=== PATIENT | female | born 2000 | race Caucasian/White ===

== ENCOUNTER 2024-09-11 19:14 | Outpatient (CLI) | payer OTHER ==
[2024-09-11 18:24] VITALS: BP 107/68
[2024-09-11] MEDS ORDERED: RINGERS SOLUTION,LACTATED 1,000 ML IV SCH (19:30)
[2024-09-11 19:56] LABS: PH,URINE 6.5 (5.0-8.0); URINE APPEARANCE Clear; URINE BILIRRUBIN Negative (NEGATIVE); URINE BLOOD Negative; URINE COLOR Yellow; URINE GLUCOSE Negative (NEGATIVE); URINE KETONE Negative (NEGATIVE); URINE LEUKOCYTE Negative; URINE NITRATE Negative; URINE PROTEIN Negative (NEGATIVE); URINE UROBILINOGEN 0.2 E.U./dl
[2024-09-11 19:57] LABS: HEMATOCRIT 43.4 % (36.0-45.00); HEMOGLOBIN 14.7 g/dL (12.0-15.00); MEAN CELL VOLUME 80.5 fL (80.00-100.00); MEAN CORPUSCULAR HEMOGLOBIN 27.3 pg (27.00-32.0); MEAN CORPUSCULAR HGB CONC 33.9 g/dl (32.0-36.0); PLATELET COUNT 232 K/uL (150-450); RED BLOOD COUNT 5.39 M/uL (4.00-6.00); RED CELL DISTRIBUTION WIDTH 14.5 % (11.5-14.5)
[2024-09-11 19:59] LABS: URINE BACTERIA 209.3 uL (0.0-1933); URINE EPITHELIAL CELLS 5.2 uL (0.0-38.8); URINE WBC 5.5 uL (0.0-23.2)
[2024-09-11 23:12] VITALS: BP 112/64
[2024-09-12 03:20] VITALS: BP 116/75
[2024-09-12 07:47] VITALS: BP 116/63
[2024-09-12 08:37] VITALS: BP 116/63
== END 2024-09-12 08:54 | disposition home or self-care (01) ==
LOC: OBS/DEL 19:14
PROVIDERS: ATTEND Obstetrics & Gynecology
DX: O26.893 Other specified pregnancy related conditions, third trimester (principal); Z3A.39 39 weeks gestation of pregnancy